=== PATIENT | female | born 1955 | race Caucasian/White ===

== ENCOUNTER 2017-12-14 21:14 | Emergency (ER) | payer OTHER ==
[2017-12-14 22:06] LABS: BILIRUBIN,URINE NEGATIVE (NEGATIVE); GLUCOSE, URINE (UA) NEGATIVE (NEGATIVE); KETONES,URINE (UA) TRACE mg/dL (NEGATIVE); LEUKOCYTE ESTERASE, URINE NEGATIVE (NEGATIVE); NITRITE,URINE NEGATIVE (NEGATIVE); OCCULT BLOOD,URINE TRACE-INTA (NEGATIVE); PROTEIN,URINE NEGATIVE (NEGATIVE); UROBILINOGEN,URINE 0.2 (NORMAL) E.U./dL (NORMAL)
[2017-12-14 22:15] LABS: BACTERIA,URINE Many /HPF (None Seen); CLARITY,URINE CLEAR (CLEAR); RBC,URINE 0-5 /HPF (0-5); SQUAMOUS EPITHELIAL CELL,UR MANY Squamous (<= Few)
[2017-12-14] MEDS ORDERED: HYDROcod/ACET 5/325 Prepack 6 PO STA (22:51)
[2017-12-14] MEDS ORDERED: KETOROLAC 60 MG/2 ML VIAL IVP STA (22:51)
[2017-12-14] MEDS ORDERED: MORPHINE 2 MG/ML CARPUJECT IVP STA (22:51)
[2017-12-14] MEDS ORDERED: DEXAMETHASONE 10 MG/ML VIAL IVP STA (22:51)
--- NOTE | 2017-12-14 23:11 | ED Physician Documentation ---
PD HPI HEADACHE - Stated complaint Stated Complaint: HIGH BLOOD PRESSURE - Chief complaint Chief Complaint: Neuro - History obtained from History obtained from: Patient - History of Present Illness Timing - onset: How many days ago (has had headache right side and periorbital for 4-5 days with BP noted high with it. usually has normal BP at about 114-120 systolic. BP noted elevated at [facility] ED yesterday and had pain meds but not treatment of BP (it went down on its own) and had labs and CT head which were reported normal to patient. Will get ED visit record. BP good this morning. Had worsening of the headache this evening and BP noted elevated again. ) Timing - onset during: Light activity Timing - details: Gradual onset, Waxing and waning Worst headache ever?: Worst headache ever? (no history of migraines in the past , no injury, no rfocal symptoms.) Location: Front, Right Quality: Throbbing, Aching Associated symptoms: Nausea. No: Fever, Stiff neck, Vomiting, Weakness, Numbness, Vision changes Improved by: No: Dark room Worsened by: No: Light, Noise Contributing factors: No: Possible carbon monoxide ( without symptoms), Hypertension, Recent illness Similar symptoms before: Has not had sx before Recently seen: Emergency Dept (yesterday at [facility]) Review of Systems Constitutional: denies: Fever, Chills Eyes: denies: Loss of vision, Decreased vision, Photophobia Nose: reports: Congestion (mild), Sinus pressure / pain. denies: Rhinorrhea / runny nose Throat: denies: Sore throat Cardiac: denies: Chest pain / pressure, Palpitations Respiratory: denies: Dyspnea, Cough GI: denies: Abdominal Pain, Nausea, Vomiting, Diarrhea Skin: denies: Rash, Lesions Neurologic: reports: Headache. denies: Generalized weakness, Focal weakness, Numbness, Near syncope, Confused, Altered mental status PD PAST MEDICAL HISTORY - Past Medical History Cardiovascular: Hypertension, High cholesterol Respiratory: None Endocrine/Autoimmune: HyPOthyroidism GI: None : None HEENT: Chronic vision loss Psych: None Musculoskeletal: None Derm: None - Past Surgical History Ortho: Carpal Tunnel surgery - Present Medications Home Medications: Ambulatory Orders Medication Instructions Recorded Confirmed Calcium Carbonate/Vitamin D3 1 each PO DAILY 10/06/16 10/06/16 [Calcium 600-Vit D3 400 Tablet] Cholecalciferol (Vitamin D3) 10,000 unit PO DAILY 10/06/16 10/06/16 [Vitamin D3] Fluticasone [Flonase] 1 sprays RAY BID 10/06/16 10/06/16 Levothyroxine [Synthroid] 88 mcg PO QDAC 10/06/16 10/06/16 Lisinopril 40 mg PO DAILY 10/06/16 10/06/16 Magnesium Oxide [Magnesium] 400 mg PO DAILY 10/06/16 10/06/16 Multivitamin [Multiple Vitamins] 1 each PO DAILY 10/06/16 10/06/16 Pravastatin Sodium 20 mg PO DAILY 10/06/16 10/06/16 Turmeric/Turmeric Root Extract 500 mg PO DAILY 10/06/16 10/06/16 [Turmeric] hydroCHLOROthiazide 12.5 mg PO DAILY 10/06/16 10/06/16 [Hydrochlorothiazide] Dexamethasone [Decadron] 4 mg PO DAILY #5 tablet 12/14/17 - Allergies Allergies/Adverse Reactions: Allergies Allergy/AdvReac Type Severity Reaction Status Date / Time No Known Drug Allergies Allergy Verified 12/14/17 21:24 - Social History Does the pt smoke?: No Smoking Status: Never smoker - Family History Family history: reports: Non contributory. denies: Venous thromboembolism, Cerebral aneurysm PD ED PE NORMAL - Vitals Vital signs reviewed: Yes - General General: Alert and oriented X 3, No acute distress, Well developed/nourished - HEENT HEENT: Atraumatic, PERRL, EOMI (fundal exam appears normal. ), Ears normal, Moist mucous membranes, Pharynx benign, Dentition benign, Other (mild tenderness around right orbital area to percussion. No redness nor swelling. 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, No motor deficit, No sensory deficit, Normal speech, Other Eye Opening: Spontaneous Motor: Obeys Commands Verbal: Oriented GCS Score: 15 - Psych Psych: Normal mood, Normal affect Results - Vitals Vitals: Oxygen O2 Source Room air - Labs Labs: Laboratory Tests 12/14/17 21:50 Urine Color YELLOW Urine Clarity CLEAR Urine pH 7.0 Ur Specific Barling 1.020 Urine Protein NEGATIVE Urine Glucose (UA) NEGATIVE Urine Ketones TRACE Urine Occult Blood TRACE-INTA Urine Nitrite NEGATIVE Urine Bilirubin NEGATIVE Urine Urobilinogen 0.2 (NORMAL) Ur Leukocyte Esterase NEGATIVE Urine RBC 0-5 Urine WBC 0-3 Ur Squamous Epith Cells MANY Squamous H Urine Bacteria Many H PD MEDICAL DECISION MAKING - ED course Complexity details: reviewed old records (from [facility] ED. ), reviewed results, considered differential (I think BP secondary to symptoms/process and not cause of the headache per se. She had some headache when her BP was normal at 114 systolic a couple days ago. No red flags to suggest need for repeat imaging nor labs (had labs and head CT yesterday - no new focal symptoms, fever , abrupt change, injury). Consider vascular headache/migraine though unusual for this age. Sinus headache more likely as periorbital area. ), d/w patient Departure - Departure Disposition: 01 Home, Self Care Clinical Impression: Headache Qualifiers: Headache type: unspecified Headache chronicity pattern: acute headache Intractability: intractable Qualified Code(s): R51 - Headache High blood pressure Qualifiers: Hypertension type: unspecified Qualified Code(s): I10 - Essential (primary) hypertension Condition: Stable Record reviewed to determine appropriate education?: Yes Instructions: ED Cephalgia Unspecified Follow-Up: Elissa Burgess DO [Primary Care Provider] - Prescriptions: Dexamethasone [Decadron] 4 mg PO DAILY #5 tablet Comments: Follow up with PMD tomorrow as planned. Add Tylenol or hydrocodone as needed for pain. Continue Decadron daily for 5 more days, if agreed upon by PMD. Continue your usual BP meds; I would not necessarily change them at this point since your BP is usually good at other times. Discharge Date/Time: 12/14/17 23:22
[2017-12-14 23:26] VITALS: BP 157/72
== END 2017-12-14 23:22 | disposition home or self-care (01) ==
LOC: ED 21:14
DX: I10 Essential (primary) hypertension (principal); R51 Headache; E78.00 Pure hypercholesterolemia, unspecified
CPT/HCPCS: 81001; 93005; 96374; 96375; 99284

== ENCOUNTER 2019-08-14 08:31 | Outpatient (CLI) | payer OTHER ==
--- NOTE | 2019-08-14 09:11 | Mammography Report ---
Reason: ROUTINE MAMMO Procedure Date: 08/14/2019 Accession Number: [id number] / [id number] Procedure: MGN - Screening Mammo Dig Bilat CPT Code: FULL RESULT: EXAM: Screening Mammo Dig Bilat DATE: 08/14/2019 9:02 AM CLINICAL HISTORY: Screening encounter. History of late childbearing. TECHNIQUE: (B) - Bilateral CC and MLO views were obtained. COMPARISON: 08/30/2017 through 07/27/2012. PARENCHYMAL PATTERN: (A) - The breast(s) demonstrate(s) scattered fibroglandular densities. FINDINGS: There are no suspicious masses, calcifications, or areas of distortion. IMPRESSION: Negative examination. BI-RADS category 1. RECOMMENDATION: (ANNUAL) - Recommend routine annual screening mammography. BI-RADS CATEGORY: (1) - Negative. STANDARD QUALIFYING STATEMENTS: 1. This examination was not reviewed with the aid of Computer-Aided Detection (CAD). 2. A negative or benign imaging report should not preclude biopsy if clinically suspicious findings are present. 3. Dense breasts may obscure an underlying neoplasm. 4. This examination was reviewed without the aid of 3D breast imaging (tomosynthesis).
== END 2019-08-14 08:32 | disposition home or self-care (01) ==
LOC: DI.N 08:31
DX: Z12.31 Encounter for screening mammogram for malignant neoplasm of breast (principal)
CPT/HCPCS: 77067

== ENCOUNTER 2020-01-03 12:45 | Outpatient (CLI) | payer BC, OTHER | END 2020-01-03 23:59 | disposition home or self-care (01) | LOC: LAB.WCP 12:45 | PROVIDERS: ATTEND Family Medicine | DX: N39.0 Urinary tract infection, site not specified (principal) | CPT/HCPCS: 87086; 87181 ==

== ENCOUNTER 2020-03-14 15:30 | Outpatient (CLI) | payer BC ==
[2020-03-14 19:36] LABS: BILIRUBIN,URINE NEGATIVE (NEGATIVE); GLUCOSE, URINE (UA) NEGATIVE (NEGATIVE); KETONES,URINE (UA) NEGATIVE (NEGATIVE); LEUKOCYTE ESTERASE, URINE NEGATIVE (NEGATIVE); NITRITE,URINE NEGATIVE (NEGATIVE); OCCULT BLOOD,URINE NEGATIVE (NEGATIVE); PROTEIN,URINE NEGATIVE (NEGATIVE); UROBILINOGEN,URINE 0.2 (NORMAL) E.U./dL (NORMAL)
[2020-03-14 19:38] LABS: CLARITY,URINE CLEAR (CLEAR)
== END 2020-03-14 23:59 | disposition home or self-care (01) ==
LOC: LAB.R 15:30
PROVIDERS: ATTEND Family Medicine
DX: N39.0 Urinary tract infection, site not specified (principal)
CPT/HCPCS: 81001; 81003; 87086

== ENCOUNTER 2020-11-26 10:00 | Outpatient (CLI) | payer BC | END 2020-11-26 23:59 | disposition home or self-care (01) | LOC: COV 10:00 | PROVIDERS: ATTEND Family Medicine | DX: R05 Cough (principal); R06.02 Shortness of breath; R53.83 Other fatigue; R09.81 Nasal congestion; Z20.822 Contact with and (suspected) exposure to COVID-19 ==

== ENCOUNTER 2021-12-25 10:47 | Day surgery (SDC) | payer BC ==
[2021-12-25] MEDS ORDERED: LACTATED RINGERS 1,000 ML IV ONE ×3 (11:04→14:24)
--- NOTE | 2021-12-25 12:41 | ANESTHESIA ---
Pre-Anesthesia VS, & Labs - Diagnosis screening - Procedure colonoscopy Vital Signs: Temp Pulse Resp BP Pulse Ox 36.6 C 81 18 148/71 H 100 12/25/21 11:10 12/25/21 11:10 12/25/21 11:10 12/25/21 11:10 12/25/21 11:10 Height: 5 ft 2 in Weight (kg): 87.9 kg Body Mass Index: 35.4 BMI Classification: Obese - NPO >8 hours - Is Patient ?: No - Lab Results Lab results reviewed: Yes Home Medications and Allergies Home Medications: Ambulatory Orders Metoprolol Tartrate [Lopressor] 50 mg PO BID 12/24/21 Cholecalciferol (Vitamin D3) [Vitamin D3] 10,000 unit PO DAILY 10/06/16 Fluticasone [Flonase] 1 sprays RAY BID 10/06/16 Levothyroxine [Synthroid] 100 mcg PO QDAC 10/06/16 Magnesium Oxide [Magnesium] 250 mg PO DAILY 10/06/16 Multivitamin [Multiple Vitamins] 1 each PO DAILY 10/06/16 Pravastatin Sodium 40 mg PO DAILY 10/06/16 Turmeric/Turmeric Root Extract [Turmeric] 500 mg PO DAILY 10/06/16 hydroCHLOROthiazide [Hydrochlorothiazide] 12.5 mg PO DAILY 10/06/16 lisinopriL [Lisinopril] 40 mg PO DAILY 10/06/16 Metoprolol Tartrate [Lopressor] 50 mg PO BID 12/24/21 Allergies/Adverse Reactions: Allergies Allergy/AdvReac Type Severity Reaction Status Date / Time No Known Drug Allergies Allergy Verified 12/14/17 21:24 Anes History & Medical History - Anesthetic History Anesthesia Complications: reports: No previous complications Family history of Anesthesia Complications: Denies Family history of Malignant Hyperthermia: Denies - Medical History Cardiovascular: reports: Hypertension, High cholesterol Pulmonary: reports: None Gastrointestinal: reports: None Urinary: reports: None Musculoskeletal: reports: None Endocrine/Autoimmune: reports: HyPOthyroidism Skin: reports: None Smoking Status: Never smoker - Surgical History General: reports: Colonoscopy Orthopedic: reports: Carpal Tunnel surgery Exam General: Alert, Oriented x3, Cooperative, No acute distress Dental: WNL Mouth Openin Fingerbreadth Neck Mobility: Normal Mallampati classification: II Plan Anesthesia Type: General, Total IV Consent for Procedure(s) Verified and Reviewed: Yes Code Status: Attempt Resuscitation ASA classification: 2-Mild systemic disease Is this case an emergency?: No
[2021-12-25] MEDS ORDERED: PROPOFOL 500 MG/50 ML 500 MG/50 ML VIAL ONE ×2 (13:23→14:01)
--- NOTE | 2021-12-25 13:35 | HISTORY & PHYSICAL EXAMINATION ---
Chief Complaint - Chief Complaint Chief Complaint: history of colon polyp History of Present Illness - History Obtained From Records Reviewed: yes History obtained from: pt Exam Limitations: none - History of Present Illness HPI Comment/Other: history of adenomatous colon polyp History - Past Medical History Cardiovascular: reports: Hypertension, High cholesterol Respiratory: reports: None Endocrine/Autoimmune: reports: HyPOthyroidism GI: reports: None : reports: None HEENT: reports: Chronic vision loss Psych: reports: None Musculoskeletal: reports: None Derm: reports: None MRSA Hx?: Yes - Past Surgical History General: reports: Colonoscopy Ortho: reports: Carpal Tunnel surgery Meds/Allgy - Home Medications Home Medications: Ambulatory Orders Medication Instructions Recorded Confirmed Cholecalciferol (Vitamin D3) 10,000 unit PO DAILY 10/06/16 12/24/21 [Vitamin D3] Fluticasone [Flonase] 1 sprays RAY BID 10/06/16 12/24/21 Levothyroxine [Synthroid] 100 mcg PO QDAC 10/06/16 12/24/21 Magnesium Oxide [Magnesium] 250 mg PO DAILY 10/06/16 12/24/21 Multivitamin [Multiple Vitamins] 1 each PO DAILY 10/06/16 12/24/21 Pravastatin Sodium 40 mg PO DAILY 10/06/16 12/24/21 Turmeric/Turmeric Root Extract 500 mg PO DAILY 10/06/16 12/24/21 [Turmeric] hydroCHLOROthiazide 12.5 mg PO DAILY 10/06/16 12/24/21 [Hydrochlorothiazide] lisinopriL [Lisinopril] 40 mg PO DAILY 10/06/16 12/24/21 Metoprolol Tartrate [Lopressor] 50 mg PO BID 12/24/21 12/24/21 - Allergies Allergies/Adverse Reactions: Allergies Allergy/AdvReac Type Severity Reaction Status Date / Time No Known Drug Allergies Allergy Verified 12/14/17 21:24 Review of Systems - Other Findings Other Findings: 10 pt ros as above otherwise unremarkable Exam - Vital Signs Reviewed Vital Signs: Yes Vital Signs: Vital Signs x48h Temp Pulse Resp BP Pulse Ox 12/25/21 11:10 36.6 C 81 18 148/71 H 100 - Physical Exam General Appearance: positive: No acute distress, Alert Eyes Bilateral: positive: PERRL, EOMI ENT: positive: No signs of dehydration Neck: positive: No JVD Respiratory: positive: No respiratory distress Abdomen: positive: Non-tender, No distention Neurologic/Psychiatric: positive: Oriented x3 Conclusion/Plan - Problem List (1) History of adenomatous polyp of colon Conclusion/Plan: plan colonoscopy. parq held and consent obtained - Lab Results Lab results reviewed: Yes
--- NOTE | 2021-12-25 14:53 | ANESTHESIA POST OP EVALUATION ---
Anesthesia Post Eval - Post Anesthesia Eval Vitals: Last Vital Signs Temp 36.2 C L 12/25/21 14:26 Pulse 59 L 12/25/21 14:50 Resp 18 12/25/21 14:50 BP 111/47 L 12/25/21 14:50 Pulse Ox 99 12/25/21 14:50 CV Function Including HR & BP: Stable Pain Control: Satisfactory Nausea & Vomiting: Negative Mental Status: Baseline Respiratory Status: Airway Patent Hydration Status: Satisfactory Anesthesia Complications: None
[2021-12-25 15:01] VITALS: BP 118/81
== END 2021-12-25 10:48 | disposition home or self-care (01) ==
LOC: SDS 10:47
PROVIDERS: ATTEND Surgery
PROC: 0DBM8ZZ Excision of Descending Colon, Via Natural or Artificial Opening Endoscopic (ICD-10-PCS; principal; 2021-12-25 12:15)
DX: Z12.11 Encounter for screening for malignant neoplasm of colon (principal); D12.4 Benign neoplasm of descending colon; K57.30 Diverticulosis of large intestine without perforation or abscess without bleeding; E66.9 Obesity, unspecified; Z68.35 Body mass index [BMI] 35.0-35.9, adult; F41.9 Anxiety disorder, unspecified
CPT/HCPCS: 45380; J7120

== ENCOUNTER 2022-01-09 10:29 | Outpatient (CLI) | payer BC ==
--- NOTE | 2022-01-09 12:51 | XRAY Report ---
PROCEDURE: Foot 3 View LT INDICATIONS: L FOOT PAIN TECHNIQUE: 3 views of the foot were acquired. COMPARISON: None FINDINGS: Bones: No acute fractures or dislocations. Curvilinear calcification adjacent to lateral aspect of f ifth metatarsal base is seen suggestive of old healed avulsion injury. Mild forefoot joint osteoarthr itic changes are seen more prominent at first MTP joint. No suspicious bony lesions. Soft tissues: No tibiotalar joint effusion. Achilles tendon appears normal. IMPRESSION: Mild forefoot joint osteoarthritis. No acute fracture or dislocation. Suggestion of old healed avulsi on injury involving lateral aspect of fifth metatarsal base. Reviewed by: Donald Hansen MD on 01/09/2022 12:50 PM PST Approved by: Donald Hansen MD on 01/09/2022 12:50 PM PST Station ID: [id number]
== END 2022-01-09 10:30 | disposition home or self-care (01) ==
LOC: DI 10:29
PROVIDERS: ATTEND Podiatrist
DX: M19.072 Primary osteoarthritis, left ankle and foot (principal)